=== PATIENT | male | born 1990 | race Two or more races ===

== ENCOUNTER 2017-07-29 01:34 | Emergency (ER) | payer BC ==
[2017-07-29] MEDS ORDERED: Acetaminophen/HYDROcodone 325-5 MG Tab PO ONE (02:12)
[2017-07-29 02:13] VITALS: BP 131/95
--- NOTE | 2017-07-29 02:14 | EDM.PDOC ---
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 He awoke about an hour ago with intense photophobia and eye pain, and suspected welders keratitis. He did wear a welding helmet, but is uncertain if the lense was strong enough. NSAIDs have been ineffective. - Related Data Allergies Allergy/AdvReac Type Severity Reaction Status Date / Time No Known Allergies Allergy Verified 07/29/17 02:12 Home Meds: Home Meds NK [No Known Home Meds] 04/27/15 [History] Social & Family History - Tobacco Use Smoking Status *Q: Never Smoker - Recreational Drug Use Recreational Drug Use: No ED ROS GENERAL - Review of Systems Review Of Systems: ROS reveals no pertinent complaints other than HPI. ED EXAM GENERAL W FULL EYE - Physical Exam Exam: See Below Exam Limited By: Physical Impairment General Appearance: Alert, WD/WN, Moderate Distress Eye Exam: Bilateral Eye: Conjunctival Injection, Normal Fundi, PERRL Visual Acuity (R) 20/: 20 Visual Acuity (L) 20/: 20 With Correction: No Eyelids: Bilateral: Normal Appearance Conjunctiva & Sclera: Bilateral: Injected Cornea Exam: Bilateral: Normal Appearance, Examined with Flourescein Extraocular Movements: Bilateral: Intact Pupils: Normal Accommodation Pupillary Size: Bilateral: 4 mm Pupillary Reaction: Bilateral: Brisk Anterior Chamber: Bilateral: Normal Appearance Posterior Chamber: Bilateral: Normal Funduscopic Ears: Normal External Exam, Normal TMs Nose: Normal Inspection Throat/Mouth: Normal Inspection, Normal Lips, Normal Gums, Normal Oropharynx, Normal Voice Head: Normocephalic Neck: Normal Inspection, Supple, Non-Tender, Full Range of Motion Respiratory/Chest: Lungs Clear Cardiovascular: Regular Rate, Rhythm Back Exam: Normal Inspection Extremities: Normal Inspection Neurological: Alert, Oriented, CN II-XII Intact, Normal Cognition, Normal Gait, No Motor/Sensory Deficits Psychiatric: Normal Affect, Anxious Skin Exam: Warm, Dry Lymphatic: No Adenopathy Course - Vital Signs Text/Narrative:: Following assession at the [facility] ED, I instilled Tetracaine 0.05% gtts with improvement in sxs. I then instilled Cyclogyl 1% gtt, Sulfacetamide 10% ophth oint, and patched both eyes. He was administered Hydrocodone 5/325 tab po before discharge, and was asx. Last Recorded V/S: Last Vital Signs Temp 36.4 C 07/29/17 02:00 Pulse 79 07/29/17 02:00 Resp 17 07/29/17 02:00 BP 131/95 H 07/29/17 02:00 Pulse Ox 100 07/29/17 02:00 - Orders/Labs/Meds Meds: Medications Discontinued Medications Generic Name Dose Route Start Last Admin Trade Name Bryan PRN Reason Stop Dose Admin Hydrocodone Bitart/Acetaminophen 1 tab 07/29/17 02:12 07/29/17 02:18 Mentor 325-5 Mg PO 07/29/17 02:13 1 tab ONETIME ONE Administration Departure - Departure Time of Disposition: 02:30 Disposition: Home, Self-Care 01 Condition: Fair Clinical Impression: UV keratitis Qualifiers: Laterality: bilateral Qualified Code(s): H16.133 - Photokeratitis, bilateral - Discharge Information Referrals: PCP,None [Primary Care Provider] - Forms: ED Department Discharge Additional Instructions: Do not remove the patches in your eyes until morning. Follow up with primary care doctor as needed. May come back if your symptoms gets worse acutely. - Problem List & Annotations (1) UV keratitis SNOMED Code(s): 1368745 Code(s): H16.139 - PHOTOKERATITIS, UNSPECIFIED EYE Status: Acute Current Visit: Yes Annotation/Comment:: Delonte may remove patches later this am, take NSAIDs for pain, and wear dark glasses. A note for medical leave from work was provided. Qualifiers: Laterality: bilateral Qualified Code(s): H16.133 - Photokeratitis, bilateral - Problem List Review Problem List Initiated/Reviewed/Updated: Yes - Assessment/Plan Plan: Follow up with PCP or pharmaceutical service representative if needed.
== END 2017-07-29 02:38 | disposition home or self-care (01) ==
LOC: FB.ED 01:34
DX: H16.133 Photokeratitis, bilateral (principal)
CPT/HCPCS: 99282; A9270